=== PATIENT | male | born 1960 | race Caucasian/White ===

== ENCOUNTER 2019-02-04 15:17 | Inpatient (IN) | payer BC, OTHER ==
[2019-02-04 13:02] LABS: BASOPHILS 1.4 % (0.0-2.0); WBC 7.3 thou/uL (4.0-11.0)
[2019-02-04 13:04] LABS: ABSOLUTE NEUTROPHILS 4.6 thou/uL (1.4-8.2); EOSINOPHILS 9.6 % (0.0-3.0); HEMATOCRIT 49.4 % (42.0-52.0); LYMPHOCYTES 19.5 % (24.0-44.0); MCH 31.2 pg (26.0-34.0); MCHC 34.4 g/dL (28.0-37.0); MCV 90.9 fL (80.0-100.0); MONOCYTES 6.9 % (1.0-8.0); PLATELET COUNT 168 thou/uL (150-400); POLYS 62.6 % (36.0-66.0); RBC 5.44 mil/uL (4.50-6.00)
[2019-02-04 13:06] LABS: CALCIUM 9.4 mg/dL (8.5-10.1); CREATININE 1.1 mg/dL (0.7-1.3); POTASSIUM 4.7 mmol/L (3.5-5.1)
[~2019-02-04 15:17] MED LIST: ALLERGY MED; CELEXA 20 MG TA20 MG PO; DOXYCYCLINE 10100 MG PO; OMEPRAZOLE; PHENERGAN-CODE120 ML PO; PROVENTIL HFA6.7 G1 INH; SIMVASTATIN5 MG; SYNTHROID200 MCG PO; ZPAK PO
[2019-02-04 15:30] VITALS: BP 156/95
[2019-02-04 18:10] VITALS: BP 127/89
[2019-02-04 19:17] VITALS: BP 123/65
--- NOTE | 2019-02-04 19:20 | NUR ---
PT ARRIVED FROM POST OP THIS EVENING. FAMILY AT BEDSIDE. PT RESTING COMFORTABLY.
[2019-02-05 04:16] VITALS: BP 111/68
--- NOTE | 2019-02-05 07:28 | NUR ---
progress pt progressing pain controlled with hydrocodone q4 to 6 hrs, elevated and ice packs applied for 2+ edema. sensation intact, cap refill brisk, reports throbbing pain able to slightly move. continue poc.
[2019-02-05 07:40] VITALS: BP 125/86
--- NOTE | 2019-02-05 12:44 | NUR ---
VASCULAR ACCESS TEAM PLACED 4FRSLPICC IN [facility]. CXR ORDERED FOR CONFIRMATION OF TIP, PLEASE SEE INSERTION NOTE FOR DETAILS
[2019-02-05 14:05] VITALS: BP 121/78
--- NOTE | 2019-02-05 15:01 | NUR ---
PT ADMITTED RELATED TO PAIN R LONG FINGER. CM REVIEWED CHART AND SPOKE WITH CARE TEAM. CM MET WITH PT AT BEDSIDE THIS DAY. PT IS A&O X4. CM ROLE INTRODUCED. PT INDICATED HE LIVES IN A HOUSE WITH HIS SIGNIFICANT OTHER. HE INDICATED THERE AT 2 STEPS TO ENTER AND NO STEPS INSIDE. 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 PT INDICATED NO DME OR HH HX. CM SPOKE WITH PT ABOUT POSSIBLE NEED FOR IV ABX UPON DC AND PT INDICATED HE WOULD PROBABLY PREFER TO DO HOME INFUSION OVER OUTPATIENT INFUSION. CM ASKED IF PT HAD PREFERENCE IN HOME INFUSION COMPANY AND HE DIDN'T CM SENT REFERRAL TO [facility] FOR THEM TO REVIEW INSURANCE. THEY TAKE PT'S INSURANCE. AWAITING IV ABX RECCOMENDTION. CM TO FOLLOW INDICATED WITH DC PLANNING.
[2019-02-05 19:15] VITALS: BP 125/86
--- NOTE | 2019-02-05 19:18 | NUR ---
PT STABLE THROUGHOUT SHIFT. PT C/O PAIN, ADDRESSED WITH MEDICATION. PT HAD PICC PLACED WHICH HE TOLERATED WELL. PT TO DC TOMORROW WITH HOME HEALTH AND IV ABX. DISCHARGE ORDER IN BY DR. CORTES, DR WADDELL TO ORDER ABX FOR HOME TOMORROW.
--- NOTE | 2019-02-06 03:45 | NUR ---
progress pt a/o x4 up ad alden pain controlled with oral pain meds. up ad alden using urinary delgado voiding large amounts of urine. vancomycin continues picc line placed 02/05 awaiting discharge orders. continue to monitor.
[2019-02-06 04:43] VITALS: BP 122/69
[2019-02-06 07:25] VITALS: BP 129/84
[2019-02-06 12:44] VITALS: BP 129/84
--- NOTE | 2019-02-06 12:46 | NUR ---
PT IS TO DISCHARGE HOME THIS DAY WITH [facility] AND [facility]. KALYAN WITH [facility] VISITED WITH PT AND DISCUSSED BENEFIT COVERAGE. COVERAGE IS $121.72 PER DAY UNTIL DED IS MET. PT WAS AGREEABLE. PT IS TO HAVE NEXT DOSE THIS EVENING BETWEEN 9 AND 10PM. [facility] WILL SEE PT IN THE HOME UPON DC. NO OTHER CM INTERVENTION INDICATED AT THIS TIME. CASE CLOSED.
--- NOTE | 2019-02-06 14:15 | NUR ---
ASSUMED CARE 0700. FROM HOME WITH , ALERT X4, DRESSING COMPLETED TO RIGHT MIDDLE FINGER. DR WADDELL MANAGEING ANTIBIOTICS CARE. DC HOME TODAY WITH PICC LINE FOR ANTIBIOTIC INFUSION WITH HOME HEALTH. PT TO FOLLOW UP WITH DR TEGAUE AND NADIRA NEXT WEEK.
--- NOTE | 2019-02-07 16:13 | O ---
[facility] [place] [address] OPERATIVE REPORT Name: ROSANNE MCCLENDON Room #: 450-P [facility] IN M.R.#: [id number] Admission: 02/04/19 ������������������ Attend Phys: Naomy Khan, Discharge: 02/06/19 ������������������ Date of : 58 Report #: [id number] THIS REPORT FOR: //name// CC: Mele Khan DATE OF SERVICE: 02/04/2019 PREOPERATIVE DIAGNOSIS: Possible right deep infection, possibly involving the subcutaneous tissue or distal interphalangeal joint. 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 PROCEDURE PERFORMED: Right long finger incision and debridement of bone, joint and subcutaneous tissue. SURGEON: Naomy Khan MD ANESTHESIA: General mask anesthesia. ESTIMATED BLOOD LOSS: Minimal. TOURNIQUET TIME: 16 minutes. SPECIMEN: Bone and tissue were separately sent to microbiology. Swab was sent to microbiology. COMPLICATIONS: None. CONDITION: Stable. DISPOSITION: Recovery room. INDICATIONS: The patient is a 59-year-old male who originally underwent an incision and debridement for what appeared to be a deep abscess that did not involve the bone or the joint at the distal portion of the dorsal right long finger. He was doing well until 3 or 4 days ago when he noted significant increase in pain, swelling and redness. He presented to my office today and I have reevaluated him in the preoperative holding area. Laboratory studies were essentially unremarkable except for an elevated CRP. MRI was reviewed by myself as well as discussed with the radiologist. Of note, there was some joint space narrowing at the DIP joint, but no significant joint effusion, no definite evidence of osteomyelitis and no evidence of flexor tenosynovitis. It was noted that there was inflammation around the digit diffusely. I discussed the diagnosis with the patient. I discussed the rationale for performing an [facility] [address] [place] [address] OPERATIVE REPORT Name: ROSANNE MCCLENDON Room #: 450-P [facility] IN .R.#: [id number] Admission: 02/04/19 ������������������ Attend Phys: Naomy Khan, Discharge: 02/06/19 ������������������ Date of : 58 Report #: [id number] incision and debridement of the distal portion of the finger, possibly even the joint depending on the surgical findings. We discussed the possibility of a flexor tenosynovitis; however, the only two signs that he had were fusiform swelling at the P1 level and tenderness along the flexor tendon sheath, although only basically at the P1 level. I discussed my concern with potentially seeding his flexor tendon sheath with infected fluid if I were to open it up to debride it if it did not require this. I discussed that at this point, I would prefer to do an incision and debridement of the distal portion of the finger and see if the proximal volar P1 level improves with IV antibiotics and Infectious Disease consult. We discussed with him he may require surgery at a later date for the flexor tendon sheath debridement. His significant other was at his bedside. The risks, benefits, alternatives and complications were discussed including, but not limited to, infection, damage to vessels or nerves, inability to resolve the infection, necessitating more surgery, wound healing problems, damage to blood vessels or nerves. Informed consent was obtained. The correct extremity was identified and labeled by myself after verbal confirmation of the patient as well as visual confirmation and signed informed consent. DESCRIPTION OF PROCEDURE: The patient was brought back to the operating room and placed in supine position. He did not receive preoperative antibiotics. He did receive 1 gram of vancomycin upon deflation of the tourniquet after the cultures were taken. The right extremity was sterilely prepped and draped in usual fashion. Final timeout was taken to verify correct patient, operative procedure, operative site, all concurred. The arm was exsanguinated proximal to the wrist and the tourniquet was inflated. Next, the prior wound was incised and then another 1 cm in the mid axial line was incised along the DIP joint. Dissection was carried down through subcutaneous tissue with tenotomy scissors. No definite abscess was obtained. However, the fluid was cloudy and there was now a dorsal breach in the cortex. The joint was immediately visible. The soft tissue and bone were debrided and sent to pathology. Any other soft tissue was debrided with a synovial rongeur. The joint was then thoroughly irrigated with a liter of antibiotic saline using 14-gauge angiocatheter and another 1 liter of antibiotic saline was used to debride the area. The wound was then closed with 4-0 nylon suture and Xeroform. He was placed in a bulky dressing. All fingers were pink with brisk capillary refill at the conclusion of the case. After deflation of tourniquet and application of the dressing, all sponge and needle counts were correct. The patient was transferred to postoperative recovery room in stable condition. ��������������������������������������������� <ELECTRONICALLY SIGNED> ���������������������������������������� By: Naomy Khan MD ��������������������������������������������� 02/07/19 1613 [id number] [id number] Naomy Khan MD /nt
== END 2019-02-06 14:34 | disposition home health service (06) | DRG 858 ==
LOC: OR 15:17 → TBA 15:18 → 4W 17:55 → OR 17:56 → ENTRNSPT 02-06 14:07 → EDTRNSPTSTS 02-06 14:10 → 4W 02-06 14:34
PROVIDERS: ADMIT Orthopaedic Surgery Hand Surgery
PROC: 0RBW0ZZ Excision of Right Finger Phalangeal Joint, Open Approach (ICD-10-PCS; principal; 2019-02-04)
DX: T81.42XA Infection following a procedure, deep incisional surgical site, initial encounter (principal); M65.841 Other synovitis and tenosynovitis, right hand; Y83.8 Other surgical procedures as the cause of abnormal reaction of the patient, or of later complication, without mention of misadventure at the time of the procedure; Y92.89 Other specified places as the place of occurrence of the external cause; Z88.0 Allergy status to penicillin
CPT/HCPCS: 10040; 10047; 50010; 50101; 50386; 56526; 57006; 57091; 57178; 62110; 62900; 70005

== ENCOUNTER → 2019-02-13 | Outpatient (CLI) | payer BC, OTHER ==
[~2019-02-13] MED LIST changes: +ELIQUIS5 M1 PO; +NORCO 5-325 TA1 EACH PO; -OMEPRAZOLE; +PRILOSEC 20 MG20 MG PO; +SENNA-DOCUSATE1 EAC1 PO; +SINGULAIR 10 MG10 M1 PO
[2019-02-13 15:15] VITALS: BP 137/87
[2019-02-13 15:46] VITALS: BP 137/87
--- NOTE | 2019-02-13 18:04 | NUR ---
HERE FOR 1ST DOSE IV CEFTRIAZONE FOR R 3RD FINGER INFECTION S/P LACERATION AND 2 SUBSEQUENT SURGICAL DEBRIDEMENTS/REPAIRS. PT HAS BEEN RECEIVING IV VANCO IN THE HOME BUT ORDER CHANGED TO CEFTRIAXONE. PT CAME DIRECTLY FROM THE OFFICE. HAS L PICC LINE. MED INFUSED WITHOUT INCIDENT, NO S/S REACTION. PT WAS DISMISSED FROM THE CLINIC BUT WAS WALKING TO HIS CAR AND STARTED HAVING BAD PAIN IN HIS R LEG, MORE SO IN UPPER CALF AND BEHIND KNEE BUT EXTENDING TO HIS BUTTOCKS AT TIME. STATES HAS BEEN THERE FOR ABOUT A WEEK BUT JUST GOT A LOT WORSE AND THOUGHT HE SHOULD MENTION IT. CALLED DR. WADDELL, ORDER RECEIVED TO GET AN ULTRASOUND, RESULT POSITIVE FOR NON-OCCLUSIVE THROMBUS R POPLITEAL. DR. WADDELL NOTIFIED. HE REQUESTED WE NOTIFY THE PCP FOR MORE DIRECTION OR, IF UNAVAILABLE, TAKE THE PT TO THE ED. DID REACH PT'S INVESTMENT ASSOCIATE PCP, DR. DREW AT [phone] WHO ADVISED THAT I TAKE THE PT TO THE ED. PT ESCORTED TO THE ED AND HANDED OFF TO THE TRIAGE NURSE WITH QUICK REPORT GIVEN.
== END ==
LOC: ULTRA 14:13 → OPONC 14:13
DX: T81.49XA Infection following a procedure, other surgical site, initial encounter (principal); S61.216D Laceration without foreign body of right little finger without damage to nail, subsequent encounter; Y83.8 Other surgical procedures as the cause of abnormal reaction of the patient, or of later complication, without mention of misadventure at the time of the procedure; X58.XXXD Exposure to other specified factors, subsequent encounter; Y93.89 Activity, other specified; Y92.89 Other specified places as the place of occurrence of the external cause; Y99.8 Other external cause status
CPT/HCPCS: 95000

== ENCOUNTER → 2019-05-09 | Outpatient (CLI) | payer BC, OTHER | LOC: ULTRA 13:14 | DX: I82.401 Acute embolism and thrombosis of unspecified deep veins of right lower extremity (principal) ==